=== PATIENT | male | born 1980 | race Caucasian/White ===

== ENCOUNTER 2018-01-07 23:12 | Emergency (ER) | payer OTHER ==
[~2018-01-07] VITALS: Ht 170.2 cm; Wt 96.2 kg
[~2018-01-07 23:12] MED LIST: NAPROSYN500 MG PO; NOHOMEMEDICATIONS; NORFLEX100 MG PO
[2018-01-07 23:32] VITALS: BP 112/71
[2018-01-07] MEDS ORDERED: ERYTHROMYCIN E3.5 G3 OPHTHALMIC (23:58)
== END 2018-01-08 00:25 | disposition home or self-care (01) ==
LOC: ER 23:12
DX: H16.8 Other keratitis (principal)